=== PATIENT | female | born 1985 | race African-American/Black ===

== ENCOUNTER 2019-04-09 16:36 | Inpatient (IN) | payer SELFPAY ==
--- NOTE | 2019-04-09 18:15 | CT ---
CT Brain WO Con: 04/09/2019 5:49 PM CLINICAL HISTORY: Whole body pain with numbness. IMAGING TECHNIQUE: Multiple CT images were obtained of the brain without IV contrast. COMPARISON: None. FINDINGS: Brain: No acute infarct or hemorrhage is evident. No midline shift. Ventricles: Normal. No hydrocephalus.. Skull: Intact.. Visualized Paranasal sinuses: Clear.. Mastoid air cells:Clear. Extracranial soft tissues:Normal. IMPRESSION: No acute intracranial abnormality.
[2019-04-09] MEDS ORDERED: Aspirin 325 MG TAB ONE (18:40)
[2019-04-09] MEDS ORDERED: Nitroglycerin 2% Ointment 1 INCH/1 GM Packet ONE (18:40)
[2019-04-09] MEDS ORDERED: Labetalol HCl 100 MG/20 ML VIAL ONE (18:40)
[2019-04-09 18:50] LABS: #Basophils 0.1 thou/uL (0.0-0.2); #Eosinphils 0.4 thou/uL (0.0-0.7); #Lymphocytes 2.4 thou/uL (1.20-3.40); #Monocytes 0.4 thou/uL (0.11-0.59); %Basophils 0.9 % (0.0-1.0); %Lymphocytes 28.7 % (21.0-51.0); %Monocytes 4.5 % (0.0-10.0); %Neutrophils 60.9 % (42.0-75.0); Hemoglobin 12.8 g/dL (12.0-16.0); Mean Corpuscular HGB CONC 32.9 g/dL (32.0-36.0); Mean Corpuscular Volume 88.3 fL (78.0-98.0); Mean Platelet Volume 9.3 fL (7.4-10.4); Platelet Count 269 thou/uL (130-400); RBC Distribution Width 12.8 % (11.5-14.5); Red Blood Cell (RBC) Count 4.41 mill/uL (4.20-5.40); White Blood Cell (WBC) Count 8.3 thou/uL (4.8-10.8)
[2019-04-09 18:59] LABS: BHCG - Serum Negative (NEGATIVE); Pregs Control Background? CLEAR/WHITE (CLR/WHITE); Pregs Control Bar Appear? YES (CONTROL BAR)
[2019-04-09 19:17] LABS: ALT (SGPT) 12 U/L (8-55); AST (SGOT) 18 U/L (5-34); Albumin 4.2 g/dL (3.5-5.0); Alkaline Phosphatase 59 U/L (40-110); Anion Gap 9 mmol/L (10-20); BUN (Urea Nitrogen) 12 mg/dL (7.0-18.7); Bilirubin, Total 0.3 mg/dL (0.2-1.2); CK (CPK) 327 U/L (29-168); Calc. Creatinine Clearance 0 mL/min (70-130); Calcium 9.1 mg/dL (7.8-10.44); Carbon Dioxide 25 mmol/L (22-29); Chloride 106 mmol/L (98-107); Estimated GFR-MDRD 74; Globulin 3.5 g/dL (2.4-3.5); Glucose 80 mg/dL (70-105); Potassium 4.1 mmol/L (3.5-5.1); Protein, Total 7.7 g/dL (6.0-8.3); Sodium 136 mmol/L (136-145)
[2019-04-09 20:10] LABS: Amphetamine Not Detected (NotDetected); Barbiturates Screen Not Detected (NotDetected); Benzodiazepine Screen Not Detected (NotDetected); Cocaine Metabolite Screen Not Detected (NotDetected); Medtox Control Line Valid? VALID (VALID); Medtox Reader # READER 1; Methadone Not Detected (NotDetected); Methamphetamine Not Detected (NotDetected); Opiate Screen Not Detected (NotDetected); Oxycodone Screen Not Detected (NotDetected); Phencyclidine (PCP) Not Detected (NotDetected); THC/Cannabinoid Screen Not Detected (NotDetected); Tricyclic Screen Not Detected (NotDetected)
[2019-04-09] MEDS ORDERED: cloNIDine 0.1 MG TAB PO PRN (23:43)
[2019-04-09] MEDS ORDERED: hydrALAZINE 20 MG/ML VIAL SLOW IVP PRN (23:43)
[2019-04-10] MEDS ORDERED: Ondansetron PF 4 MG/2 ML Vial ONE (00:17)
[2019-04-10 00:37] LABS: PTT 29.7 SEC (22.9-36.1); Prothrombin Time 13.4 SEC (12.0-14.7)
[2019-04-10 00:38] LABS: D-Dimer Test 0.43 *mcg/mL (0.27-0.43)
--- NOTE | 2019-04-10 03:56 | HP ---
CHIEF COMPLAINT: Numbness and tingling all over the body, but mainly on the left side. HISTORY OF PRESENT ILLNESS: Ms. Card is a very pleasant 33-year-old female who has a history of asthma. She says that she was in her usual state of health until about 10:00 a.m. She was at a friend's house when she says that her whole body went numb including her arm and face and was primarily on the left side. She also noticed some pains off and on in the left arm as well. She says she kind of "went out" and then was noticing that she felt kind of sleepy all over. She says that she did not really pass out, but she could hear everything that was going on, but could not really move around. She says she went to the [facility] ER and says that they told her they did have "all the equipment needed to take care of her," so she says she felt kind of confused and went home. She says she called a friend who knew a doctor and her symptoms kept coming and going, and they requested that she come to the ER here for evaluation. When she got here, it was noted that her blood pressure was elevated at 201/140 and her symptoms kept waxing and waning and for this reason, she is being admitted. Otherwise, the patient has no other complaints other than some back pain off and on. She denies having any headache. She denies it feeling any dizziness and she notices that the left arm and leg is still a bit numb off and on, but otherwise no other symptoms. REVIEW OF SYSTEMS: Negative except for that mentioned in the history of present illness. PAST MEDICAL HISTORY: Significant for asthma, lumbar disk disease, and anxiety. PAST SURGICAL HISTORY: She has had tonsillectomy and wisdom teeth removed. ALLERGIES: NO KNOWN DRUG ALLERGIES. SOCIAL HISTORY: She works as a valve technician at a local restaurant. She is a nonsmoker and nondrinker. Does not use any illicit drugs. She is single. FAMILY HISTORY: Unknown. She says that she was adopted. MEDICATIONS: Include ibuprofen and citalopram. PHYSICAL EXAMINATION: GENERAL: She is alert and oriented. She appears to be in no acute distress. She is well developed and well nourished. VITAL SIGNS: Currently, blood pressure is 148/60, heart rate is in the 70s, respiratory rate of 16, and she is afebrile. HEENT: Pupils are equal, round, and reactive to light. Extraocular muscles are intact. Her sclerae are anicteric. Throat, there is no erythema, no exudates. NECK: No adenopathy. No bruits. LUNGS: Clear to auscultation. There is no wheezing, no rales, no rhonchi. CARDIOVASCULAR: She has a normal S1, S2. There is no S3 or S4. No murmurs, clicks, or rubs. ABDOMEN: Obese. It is soft, nontender, and nondistended. Positive for bowel sounds. No rebound. No guarding. No organomegaly. EXTREMITIES: There is no clubbing or cyanosis. No edema. NEUROLOGICAL: Her cranial nerves 2 through 12 are grossly intact. Her muscle strength is 5/5 in both her upper and lower extremities. Her left arm and left leg did appear to be slightly weaker than on the right. However, it is difficult to say whether or not this was due to effort. There is no drift and her reflexes are 2+ and symmetric throughout. SKIN AND INTEGUMENT: No skin changes. No rashes. LABORATORY DATA: Urine drug screen was negative. Her chemistry, sodium was 136, potassium 4.1, chloride is 106, CO2 is 25, BUN of 12, creatinine 1.05, glucose is 80. Urine test is negative. CBC, the white blood cell count is 8.3, hemoglobin 12.8, hematocrit is 39, platelet count is 269. test was negative. She had an EKG which is by my reading is sinus rhythm. No acute ST wave changes, the rate was 86. She had a CT scan of the brain, which was negative for any acute intracranial abnormality. ASSESSMENT: 1. This is a pleasant 33-year-old female who presents to the emergency room with elevated blood pressure and numbness and tingling on her left side as well as some weakness. There is concern for possible acute ischemic infarct. She is relatively young with few risk factors, however, she is overweight and she could undiagnosed illness such as hypercoagulable state or lupus. She will be admitted. We will get a stroke workup including an MRI of the brain and carotid Dopplers as well as an echo. We will do a screen for collagen vascular disease as well as hypercoagulable state screen and lipid panel and also we will get an MRI of her cervical spine as some of her symptoms sound like it could be cervical disk disease as well. 2. Hypertensive urgency. Given the elevation of her blood pressure initially, we will go ahead and start her on an antihypertensive and also place her on p.r.n. medication as well. 3. Asthma. We will place her on DuoNe[employer] p.r.n. Job ID: [id number]
[2019-04-10 04:12] LABS: #Basophils 0.1 thou/uL (0.0-0.2); #Eosinphils 0.4 thou/uL (0.0-0.7); #Lymphocytes 2.6 thou/uL (1.20-3.40); #Monocytes 0.6 thou/uL (0.11-0.59); #Neutrophils 4.7 thou/uL (1.40-6.50); %Basophils 0.7 % (0.0-1.0); %Eosinophils 4.6 % (0.0-10.0); %Lymphocytes 31.2 % (21.0-51.0); %Monocytes 6.6 % (0.0-10.0); Hemoglobin 11.5 g/dL (12.0-16.0); Mean Corpuscular HGB CONC 32.8 g/dL (32.0-36.0); Mean Corpuscular Hemoglobin 29.3 pg (27.0-31.0); Mean Corpuscular Volume 89.2 fL (78.0-98.0); Mean Platelet Volume 8.5 fL (7.4-10.4); Platelet Count 242 thou/uL (130-400); RBC Distribution Width 12.4 % (11.5-14.5); Red Blood Cell (RBC) Count 3.92 mill/uL (4.20-5.40); White Blood Cell (WBC) Count 8.2 thou/uL (4.8-10.8)
[2019-04-10 04:36] LABS: Anion Gap 12 mmol/L (10-20); BUN (Urea Nitrogen) 14 mg/dL (7.0-18.7); Calc. Creatinine Clearance 0 mL/min (70-130); Calcium 8.8 mg/dL (7.8-10.44); Carbon Dioxide 21 mmol/L (22-29); Cardiac Risk 3.9 (Less than 4.5); Chloride 108 mmol/L (98-107); Cholesterol 168 mg/dl (< 200 Desired); Estimated GFR-MDRD 77; Glucose 91 mg/dL (70-105); HDL Cholesterol 43 mg/dL (>60 Neg Risk); LDL Cholesterol, Calculated 108 mg/dL; Potassium 3.9 mmol/L (3.5-5.1); Sodium 137 mmol/L (136-145); Triglycerides 87 mg/dL (Less than 150)
[2019-04-10] MEDS ORDERED: Aspirin 325 mg Enteric Coated Tablet PO SCH (09:00)
[2019-04-10] MEDS ORDERED: Lisinopril 5 MG TAB PO SCH (09:00)
[2019-04-10] MEDS ORDERED: Enoxaparin Sodium 40 MG/0.4 ML SYRINGE SC SCH (09:00)
[2019-04-10] MEDS ORDERED: Enoxaparin Sodium 40 MG/0.4 ML SYRINGE ONE (09:27)
[2019-04-10] MEDS ORDERED: Aspirin 325 MG TAB ONE (09:27)
--- NOTE | 2019-04-10 11:17 | MRI ---
MRI Brain W WO Con: 04/10/2019 8:00 AM CLINICAL HISTORY: CVA. COMPARISON: No prior brain MRI FINDINGS: Extra axial spaces: There is a partially empty sella. Acute infarction: None. Ventricular system: Small. Basal cisterns: Normal. Cerebral parenchyma: Normal. Midline shift: None. Cerebellum: Normal. Brainstem: Normal. Paranasal sinuses:Mild mucosal thickening. Intraaxial Enhancement: None IMPRESSION: Partially empty sella and small ventricular system. This can be seen in the setting of idiopathic int racranial hypertension. Correlate clinically. No acute territorial infarction or intra-axial mass effect.
[2019-04-10] MEDS ORDERED: Atorvastatin Calcium 40 MG TAB PO SCH (21:00)
[2019-04-11 10:55] LABS: Protein C Activity 108 % (78-152)
[2019-04-11 13:15] LABS: Factor VIII Test 359.5 % ACTIVE (56-157)
[2019-04-11 15:38] LABS: ANA Symphony (Qualitative) Negative (Negative); ANA Symphony (Quantitative) 0.2 Ratio (< 0.7 Negative); Cardiolipin IgG Ab 0.7 GPL-U/mL (<10 Negative); EliA APS New Method **** NEW METHOD ****; dsDNA IgG Antibody 0.9 IU/mL (<10 Negative)
[2019-04-12 11:04] LABS: HEX PHOS LA Tube 1 55.1 SEC; HEX PHOS LA Tube 2 49.9 SEC; Hexagonal Phospholipid Neut 5.2 SEC (0-8.0)
--- NOTE | 2019-04-12 23:06 | PQF ---
Gabriela Card TONI MD [id number] CLINICAL DOCUMENTATION CLARIFICATION FORM: POST DISCHARGE Addendum to original discharge summary date: ____ Late entry note date: __ DATE: 04/12/19 ATTN: Arian Lira Please exercise your independent, professional judgment in responding to the clarification form. Clinical indicators are provided on the bottom of this form for your review In your clinical opinion based on clinical findings below, can you please identify the etiology of Numbness and tingling of her left side if due to : Please check appropriate box(s): [ X ] Hypertensive Urgency [ ] Acute Ischemic Infarct [ ] Cervical Disk Disease [ ]Other condition, please specify: [ ] Unable to determine In addition, please specify: Present on Admission (POA): [ X ] Yes [ ] No [ ] Unable to determine For continuity of documentation, please document condition throughout progress notes and discharge summary. Thank You. CLINICAL INDICATORS - SIGNS / SYMPTOMS / LABS H&P p1 04/09 Dr Mauricio Chief conplaint : Numbness and tingling all over the body, but mainly on the left side H&P p1 04/09 Dr Mauricio it was noted that her blood pressure was elevated at 201 /140 and her symptoms kept waxing and waning and for this reason,she is being admitted H&P p1 04/09 Dr Mauricio She denies it feeling any dizziness and she notices that the left arm and leg is still a bit numb off and on, but otherwise no other symptoms H&P p2 04/09 Dr Mauricio there is concern for possible acute ischemic infarct H&P p2 04/09 Dr Mauricio we will get an MRI of her cervical spine as some of her symptoms sound like it could be cervical disk disease as well MRI brain 04/10 Impression: Partially empty sella and small ventricular system. This can be seen in the setting of idiopathic intracranial hypertension RISK FACTORS H&P p1 04/09 - Lumbar disk disease H&P p2 04/09 - Hypertensive Urgency TREATMENTS: H&P p2 04/09 - Ordered for MRI H&P p3 04/09 - Start her on an antihypertensive (This form is maintained as a part of the permanent medical record) 2014 [employer] All Rights Reserved [email or web address] [not provided] [email or web address]
== END 2019-04-10 14:53 | disposition home or self-care (01) | DRG 305 ==
LOC: ERS 16:36 → ERHOLD 19:20
PROVIDERS: ADMIT Internal Medicine; ATTEND Internal Medicine
DX: I16.0 Hypertensive urgency (principal); J45.909 Unspecified asthma, uncomplicated; M51.36 Other intervertebral disc degeneration, lumbar region; F41.9 Anxiety disorder, unspecified; I10 Essential (primary) hypertension; Z79.899 Other long term (current) drug therapy
CPT/HCPCS: 36415; 70450; 70553; 80048; 80053; 80061; 80306; 81240; 81241; 82550; 83090; 84703; 85025; 85240; 85300; 85303; 85305; 85307; 85379; 85598; 85610; 85730; 86038; 86147; 86225; 93005; 93306; 96374; 96375; J1650; J2405